=== PATIENT | female | born 1990 | race African-American/Black ===

== ENCOUNTER 2016-10-02 10:33 | Emergency (ER) | payer OTHER ==
[~2016-10-02] VITALS: Ht 152.4 cm; Wt 64.0 kg
[2016-10-02 10:57] VITALS: Ht 152.4 cm; Wt 64.0 kg
[2016-10-02 12:41] LABS: URINE BLOOD (Dip) POC Negative (NEGATIVE)
--- NOTE | 2016-10-02 13:10 | RADRPT ---
PROCEDURE: US Pelvis CLINICAL INDICATION: Pelvic pain and vaginal bleeding. TECHNIQUE: Sonographic evaluation of the pelvis was performed utilizing both transabdominal and tr ansvaginal technique. Curved array transabdominal transducer technique as well as a high frequency endovaginal probe was utilized. Images were reviewed on the high-resolution PACS workstation. COMPARISON: No prior studies are available for comparison. FINDINGS: The uterus is normal in size, echogenicity, and morphology measuring 7.0 x 4.0 x 5.0 cm in dimension . The uterus is anteverted in normal position. The endometrium is normal for a menstrual age fema le measuring 6.8 mm in diameter. The right ovary measures 3.5 x 2.1 x 2.1 cm in dimension. The left ovary measures 3.3 x 2.1 x 2.1 c m in dimension. The ovaries are symmetric in size, echogenicity, and morphology. Normal Doppler fl ow is demonstrated to both ovaries. There are no adnexal masses. There is trace free fluid in the pelvis. There is a tampon within the vaginal canal. IMPRESSION: Unremarkable ultrasound of the pelvis. RPTAT: HH .Olivia Pink MD, Date Time Electronically viewed and signed by .Olivia Pink MD, on 10/02/2016 13:10 .G/
[2016-10-02 13:32] LABS: ADD SCAN DIFF NO
[2016-10-02 13:34] LABS: BASOPHIL # 0.1 10^3/ul (0.0-0.1); BASOPHILS % 0.6 % (0.0-2.0); EOSINOPHILS # 0.2 10^3/ul (0.0-0.5); EOSINOPHILS % 2.4 % (0.0-7.0); HEMATOCRIT 37.7 % (37.0-47.0); HEMOGLOBIN 12.2 g/dl (12.0-16.0); LYMPHOCYTES % 34.1 % (15.0-51.0); MEAN CORPUSCULAR HEMOGLOBIN 24.2 pg (29.0-33.0); MEAN CORPUSCULAR HGB CONC 32.4 g/dl (32.0-37.0); MEAN CORPUSCULAR VOLUME 74.7 fl (82.0-101.0); MEAN PLATELET VOLUME 10.7 fl (7.4-10.4); MONOCYTE # 0.6 10^3/ul (0.3-0.9); MONOCYTES % 6.9 % (0.0-11.0); NEUTROPHILS % 55.7 % (39.0-77.0); PLATELET COUNT 274 10^3/UL (140-415); RED BLOOD COUNT 5.05 10^6/ul (4.20-5.40); RED CELL DISTRIBUTION WIDTH 16.7 % (11.5-14.5); WHITE BLOOD COUNT 8.9 10^3/ul (4.8-10.8)
[2016-10-02] MEDS ORDERED: KETOROLAC 30 MG INJ IM STA (13:41)
[2016-10-02 13:49] LABS: CREATININE 0.75 mg/dl (0.44-1.00)
[2016-10-02 13:50] LABS: CALCIUM 8.6 mg/dl (8.4-10.2)
--- NOTE | 2016-10-02 13:50 | ERD ---
ER Documentation Chief Complaint Date/Time DATE: 10/02/16 TIME: 13:44 Chief Complaint Pelvic pain abd VB X 2 days, not mentruating currently. HPI Presenting to the emergency department for pelvic pain and vaginal bleeding 2 days. Patient states last menstrual period was beginning of September. Patient states she developed vaginal bleeding last night. Patient states bleeding is not heavy. No passage of clots. Describes bleeding as moderate. Patient has suprapubic tenderness. Patient states she has pain that feels like menstrual cramps. No dysuria or hematuria. No vaginal rash or lesions. No vaginal discharge or itching. Patient has significant surgical history of appendectomy. ROS All systems reviewed and are negative except as per history of present illness. Medications Home Meds Active Scripts Hydrocodone/Acetaminophen ([place] 5-325 Tablet) 1 Each Tablet, 1 TAB PO Q6H Y for PAIN, #7 TAB Prov:JERONIMO BEAVERS NP 10/02/16 Ibuprofen* (Motrin*) 600 Mg Tab, 600 MG PO Q6, #15 TAB Prov:JERONIMO BEAVERS NP 10/02/16 PMhx/Soc Medical and Surgical Hx: pt denies Medical Hx History of Surgery: Yes (breast augmention, APPY) Anesthesia Reaction: No Hx Neurological Disorder: No Hx Respiratory Disorders: No Hx Cardiac Disorders: No Hx Psychiatric Problems: No Hx Miscellaneous Medical Probl: No Hx Alcohol Use: No Hx Substance Use: No Hx Tobacco Use: No Smoking Status: Never smoker Physical Exam Vitals Vital Signs Date Time Temp Pulse Resp B/P Pulse Ox O2 Delivery O2 Flow Rate FiO2 10/02/16 10:57 97.6 90 18 129/77 100 Physical Exam Const: No acute distress, alert Head: Atraumatic Eyes: Normal Conjunctiva ENT: Normal External Ears, Nose and Mouth. Neck: Full range of motion..~ No meningismus. Resp: Clear to auscultation bilaterally Cardio: Regular rate and rhythm, no murmurs Abd: Soft, non distended. Normal bowel sounds. Suprapubic tenderness. Negative rebound tenderness. Negative Gruber sign. Skin: No petechiae or rashes Back: No midline or flank tenderness Ext: No cyanosis, or edema Neur: Awake and alert Psych: Normal Mood and Affect Result Diagram: 10/02/16 1320 10/02/16 1320 Results 24 hrs Laboratory Tests Test 10/02/16 12:40 10/02/16 13:20 Bedside Urine Blood Negative Bedside Urine Glucose (UA) Negative Bedside Urine Ketones (LAB) Negative Bedside Urine Leukocyte Esterase (L Negative Bedside Urine Nitrite (LAB) Negative Bedside Urine Protein (LAB) Negative Bedside Urine pH (LAB) 7.0 Anion Gap 15 Basophils # 0.110^3/ul Basophils % 0.6% Blood Urea Nitrogen 10mg/dl Calcium Level 8.6mg/dl Carbon Dioxide Level 25mmol/L Chloride Level 108mmol/L Creatinine 0.75mg/dl Eosinophils # 0.210^3/ul Eosinophils % 2.4% Glucose Level 79mg/dl Hematocrit 37.7% Hemoglobin 12.2g/dl Lymphocytes # 3.010^3/ul Lymphocytes % 34.1% Mean Corpuscular Hemoglobin 24.2pg Mean Corpuscular Hemoglobin Concent 32.4g/dl Mean Corpuscular Volume 74.7fl Mean Platelet Volume 10.7fl Monocytes # 0.610^3/ul Monocytes % 6.9% Neutrophils # 5.010^3/ul Neutrophils % 55.7% Nucleated Red Blood Cells # 0.010^3/ul Nucleated Red Blood Cells % 0.0/100WBC Platelet Count 25270^3/UL Potassium Level 4.0mmol/L Red Blood Count 5.0510^6/ul Red Cell Distribution Width 16.7% Sodium Level 144mmol/L White Blood Count 8.910^3/ul Current Medications Medications (Trade) Dose Ordered Sig/Madeleine Route PRN Reason Start Time Stop Time Status Last Admin Dose Admin Ketorolac Tromethamine (Toradol) 30 mg ONCE STAT IM 10/02/16 13:41 10/02/16 13:42 DC Procedures/MDM ED COURSE: The patient was stable throughout ED course. I kept the patient and/or family informed of laboratory and diagnostic imaging results throughout the ED course. Toradol given Laboratory CBC no significant anemia or infection BMP no significant electrolyte amount Urine dip negative for infection Urine negative Gonorrhea and Chlamydia pending Imaging Pelvic ultrasound Patient: CHUY HDEZ : 1990 Age: 25 Sex: F MR #: [id number] DOS: 10/02/16 1218 Ordering MD: JERONIMO BEAVERS NP Location: [facility] Room/Bed: PROCEDURE: US Pelvis CLINICAL INDICATION: Pelvic pain and vaginal bleeding. TECHNIQUE: Sonographic evaluation of the pelvis was performed utilizing both transabdominal and transvaginal technique. Curved array transabdominal transducer technique as well as a high frequency endovaginal probe was utilized. Images were reviewed on the high-resolution PACS workstation. COMPARISON: No prior studies are available for comparison. FINDINGS: The uterus is normal in size, echogenicity, and morphology measuring 7.0 x 4.0 x 5.0 cm in dimension. The uterus is anteverted in normal position. The endometrium is normal for a menstrual age female measuring 6.8 mm in diameter. The right ovary measures 3.5 x 2.1 x 2.1 cm in dimension. The left ovary measures 3.3 x 2.1 x 2.1 cm in dimension. The ovaries are symmetric in size, echogenicity, and morphology. Normal Doppler flow is demonstrated to both ovaries. There are no adnexal masses. There is trace free fluid in the pelvis. There is a tampon within the vaginal canal. IMPRESSION: Unremarkable ultrasound of the pelvis. MDM:25-year-old female presents emergency department for pelvic pain and vaginal bleeding 2 days. Last menstrual period was beginning of September. Patient began having menstrual-like cramps and vaginal bleeding last night. Urine dip is negative for infection. Urine is negative. Pelvic ultrasound reviewed by radiologist as unremarkable. Labs are unremarkable for significant infection, anemia or electrolyte imbalance. Awaiting urine results for gonorrhea and chlamydia. Patient given Toradol on the ED. Remains hemodynamically stable. No fevers or chills. Patient states pain has improved after Toradol. Diagnosis is dysfunctional uterine bleeding. Low suspicion for ovarian cyst, fibroid, ectopic , ovarian torsion, or pelvic inflammatory disease. Patient is appropriate for outpatient management will be given prescription for ibuprofen and Cal[place]a. Instructed patient to follow-up with primary care provider in the next 24-48 hours for reassessment and additional management. Return to ED for any high fever, chest pain, difficulty breathing, shortness breath, wheezing, vomiting, diarrhea, abdominal pain or any new or worsening symptoms. Patient verbalizes understanding. All questions answered at discharge. Departure Diagnosis: Primary Impression: Dysfunctional uterine bleeding Condition: Stable JERONIMO BEAVERS NP Oct 02, 2016 13:50
[2016-10-02] MEDS ORDERED: IBUP-1542 PO (14:21)
[2016-10-02] MEDS ORDERED: HYDR-906 PO (14:21)
[2016-10-02 14:40] VITALS: BP 122/77; PULSE 78; RESP 18; TEMP 98.2
[2016-10-02] MEDS ORDERED: IBUPROFEN 600 MG TAB PO ONE (15:00)
== END 2016-10-02 14:40 | disposition home or self-care (01) ==
LOC: FTE 10:33
DX: N93.8 Other specified abnormal uterine and vaginal bleeding (principal)
CPT/HCPCS: 76830; 76856; 80048; 81003; 85025; 87591; 96372; 99285; J1885

== ENCOUNTER 2016-11-23 16:54 | Emergency (ER) | payer OTHER ==
[~2016-11-23] VITALS: Ht 157.5 cm; Wt 64.0 kg
[~2016-11-23 16:54] MED LIST: HYDR-906 PO; IBUP-1542 PO
[2016-11-23 17:14] VITALS: Ht 157.5 cm; Wt 64.0 kg
--- NOTE | 2016-11-23 18:56 | ERD ---
ER Documentation Chief Complaint Date/Time DATE: 11/23/16 TIME: 18:54 Chief Complaint RIGHT KNEE PAIN X 3 DAYS HPI 25-year-old otherwise healthy female presents to the emergency department for complaints of intermittent right sided knee pain 3 months. Patient denies any known injury. She describes the pain as a dull 4 out of 10 worse with palpation of the area. Patient also notes the pain begins to throb at night when she is laying down and he is fully extended. Patient states she is able to bear weight and denies any major swelling or redness. Patient denies fever, nausea, vomiting, or diarrhea. Patient states she is in the knee and required to perform physical activity often. ROS All systems reviewed and are negative except as per history of present illness. Medications Home Meds Active Scripts Hydrocodone/Acetaminophen ([place] 5-325 Tablet) 1 Each Tablet, 1 TAB PO Q6H Y for PAIN, #7 TAB Prov:JERONIMO BEAVERS NP 10/02/16 Ibuprofen* (Motrin*) 600 Mg Tab, 600 MG PO Q6, #15 TAB Prov:JERONIMO BEAVERS NP 10/02/16 Allergies Allergies: Coded Allergies: No Known Allergy (Unverified , 10/02/16) PMhx/Soc Medical and Surgical Hx: pt denies Medical Hx History of Surgery: Yes (breast augmention, APPY) Anesthesia Reaction: No Hx Neurological Disorder: No Hx Respiratory Disorders: No Hx Cardiac Disorders: No Hx Psychiatric Problems: No Hx Miscellaneous Medical Probl: No Hx Alcohol Use: No Hx Substance Use: No Hx Tobacco Use: No Smoking Status: Never smoker Physical Exam Vitals Vital Signs Date Time Temp Pulse Resp B/P Pulse Ox O2 Delivery O2 Flow Rate FiO2 11/23/16 17:14 98.2 88 18 130/74 98 Physical Exam Const: Well-developed, well-nourished, no acute distress Head: Atraumatic Eyes: Normal Conjunctiva ENT: Normal External Ears, Nose and Mouth. Neck: Full range of motion..~ No meningismus. Resp: Clear to auscultation bilaterally Cardio: Regular rate and rhythm, no murmurs Abd: Soft, non tender, non distended. Normal bowel sounds Skin: No petechiae or rashes Back: No midline or flank tenderness Ext: Right knee compared with unaffected left knee. Patient walks with normal gait and is able to bear weight. Bilateral knees symmetrical no obvious deformity, crepitus, significant effusion, surface trauma, ecchymosis, open wounds, erythema, warmth, or tenderness to palpation over her right knee. Patient able to perform active and passive range of motion however reports pain upon full flexion at the knee joint. No evidence of laxity with valgus or varus stress. Distal motor and neurovascular function intact. Negative Queta , drawer test. Negative Kathy. No cyanosis, or edema Neur: Awake and alert Psych: Normal Mood and Affect Results 24 hrs Current Medications Medications (Trade) Dose Ordered Sig/Madeleine Route PRN Reason Start Time Stop Time Status Last Admin Dose Admin Ibuprofen (Motrin) 600 mg ONCE ONCE PO 11/23/16 19:30 11/23/16 19:31 DC Procedures/MDM PROCEDURE: XR Knee. CLINICAL INDICATION: Right knee pain. TECHNIQUE: Three views of the right knee are available for review. COMPARISON: None available FINDINGS: No acute fracture or dislocation is seen. No radiopaque foreign body is identified. Alignment is anatomic. No significant soft tissue swelling is present. IMPRESSION: 1. No acute fracture or dislocation is seen. RPTAT: HH .Lizet Guzman MD, MD Date Time Electronically viewed and signed by .Lizet Guzman MD, MD on 11/23/2016 19: 29 .N/ CC: TERESITA MORILLO PA-C Patient is able to bear weight and ambulate without pain. There is no surface trauma, major effusion, overlying erythema or warmth. The right knee is without obvious asymmetry or deformity when compared to the left knee. Patient does note pain upon deep flexion of the affected knee. Patient is able to fully extend right knee and perform internal and external rotation. There is no tenderness to palpation of the patella. No tenderness over the medial or lateral joint line, or tibial plateau. Patient does exhibit quadricep tenderness when in flexion. There is no evidence of laxity of the ACL MCL or LCL. Negative Queta and drawer sign. X-ray without evidence of acute fracture or dislocation. Patient to follow-up with special effects specialist so that she may obtain an MRI for further evaluation. Patient's clinical presentation consistent with chronic intermittent right knee pain likely due to patellar or quadriceps tendinitis. At this time I have a low suspicion for septic arthritis, acute fracture, major tendinous tear, or dislocation. Patient instructed to minimize activity involving quadricep strengthening, or squats until pain improves. Patient to begin Motrin for pain control. I recommended to the patient to follow-up with primary care for referral to special effects specialist for possible MRI or physical therapy. Based on patient's history of present illness and physical examination the decision was made to discharge. The patient was re-evaluated after ED treatment and stabilizing measures, and symptoms have improved. There is no evidence of life threatening injuries or illnesses at this time. On re-examination, patient resting in no distress, stable vital signs, reports feeling better and safe for discharge with outpatient follow up with PMD in 1-2 days. Patient given return precautions. Departure Diagnosis: Primary Impression: Knee pain Laterality: right Chronicity: chronic Qualified Code: M25.561 - Chronic pain of right knee TERESITA MORILLO PA-C November 23, 2016 18:56
[2016-11-23] MEDS ORDERED: IBUPROFEN 600 MG TAB PO ONE (19:30)
--- NOTE | 2016-11-23 19:30 | RADRPT ---
PROCEDURE: XR Knee. CLINICAL INDICATION: Right knee pain. TECHNIQUE: Three views of the right knee are available for review. COMPARISON: None available FINDINGS: No acute fracture or dislocation is seen. No radiopaque foreign body is identified. Alignment is a natomic. No significant soft tissue swelling is present. IMPRESSION: 1. No acute fracture or dislocation is seen. RPTAT: HH .Lizet Guzman MD, MD Date Time Electronically viewed and signed by .Lizet Guzman MD, MD on 11/23/2016 19:29 .N/
[2016-11-23] MEDS ORDERED: IBUP-1542 PO (19:40)
[2016-11-23] MEDS ORDERED: HYDR-906 PO (19:40)
== END 2016-11-23 20:04 | disposition home or self-care (01) ==
LOC: FTE 16:54
DX: M25.561 Pain in right knee (principal)
CPT/HCPCS: 73562